=== PATIENT | male | born 1960 | race African-American/Black ===

== ENCOUNTER 2018-07-03 04:50 | Inpatient (IN) ==
[2018-06-22 14:12] LABS: Basophils % 0.8 % (0.0-0.8); Eosinophils # 0.1 10*3/uL (0.0-0.87); Eosinophils % 2.3 % (0.00-10.9); Hematocrit 40.5 VOL% (42.0-52.0); Hemoglobin 13.2 GM/DL (14.0-18.0); Immature Granulocytes % 0.2 %; Immature Granulocytes Absolute 0.01 #; Lymphocytes # 1.7 10*3/uL (1.4-4.0); Lymphocytes % 31.7 % (21.2-54.2); Mean Corpuscular HGB Conc 32.6 GM/DL (32-36); Mean Corpuscular Hemoglobin 29 PG (27-34); Mean Corpuscular Volume 88.4 FL (87-102); Mean Platelet Volume 11.4 FL (9.6-12.0); Monocytes # 0.4 10*3/uL (0.11-0.8); Monocytes % 8.1 % (1.7-12.7); Neutrophils % 56.9 % (38.7-73.9); Platelet Count 232 T/CUMM (130-400); Red Blood Count 4.58 MC/CUMM (3.8-5.5); Red Cell Distribution Width 14.3 % (9.3-17.3); White Blood Count 5.3 T/CUMM (4-12)
[2018-06-22 14:23] LABS: INR 1.1; PT Patient Result 11.4 SECS; Partial Thromboplastin Time 25.9 SECS (0-40)
[2018-06-22 14:37] LABS: Albumin 4.1 G/DL (3.4-5.0); Bilirubin,Total 0.7 MG/DL (0.2-1.0); Calcium 8.8 MG/DL (8.5-10.1); Osmolality,Calculated 282.3 MOS/KG (273-304); Potassium 4.1 MMOL/L (3.5-5.1); Total Protein 8.3 G/DL (6.4-8.3)
[2018-06-22 14:46] LABS: Apearance,Urine CLEAR (Clear); Bilirubin,Urine Negative (Negative); Blood, Urine Negative (Negative); Glucose,Urine (UA) Negative (Negative); Ketones,Urine Negative (Negative); Nitrite,Urine Negative (Negative); Protein,Urine Negative; Urine Color Yellow (Yellow); Urine Specific Gravity 1.018 (1.001-1.035); Urine Urobilinogen < 2.0 EU/DL (0.2-1.0); WBC,Urine 1 /HPF (0-6)
[2018-07-03] MEDS ORDERED: FAMOTIDINE 20 MG TABLET PO ONE (05:30)
[2018-07-03] MEDS ORDERED: GABAPENTIN 400 MG CAPSULE PO ONE (05:30)
[2018-07-03] MEDS ORDERED: ACETAMINOPHEN 500 MG TABLET PO ONE (05:30)
[2018-07-03] MEDS ORDERED: DIAZEPAM 5 MG TABLET PO ONE (05:30)
[2018-07-03] MEDS ORDERED: CLINDAMYCIN INJ 900 MG in PREMIX 1 EACH IV ONE (06:00)
[2018-07-03] MEDS ORDERED: VANCOMYCIN INJ 1,000 MG in SODIUM CHLORIDE 0.9% 250 ML IV ONE ×2 (06:00→21:00)
[2018-07-03] MEDS ORDERED: GABAPENTIN 400 MG CAPSULE ONE (06:52)
[2018-07-03] MEDS ORDERED: ACETAMINOPHEN 500 MG TABLET ONE (06:52)
[2018-07-03] MEDS ORDERED: FAMOTIDINE 20 MG TABLET ONE (06:52)
[2018-07-03] MEDS ORDERED: DIAZEPAM 5 MG TABLET ONE (06:52)
[2018-07-03] MEDS ORDERED: VANCOMYCIN 1,000 MG VIAL ONE (06:52)
[2018-07-03] MEDS ORDERED: CLINDAMYCIN INJ 50 ML IV ONE (06:53)
[2018-07-03] MEDS ORDERED: LACTATED RINGERS 1,000 ML IV SCH ×3 (07:30→14:00)
[2018-07-03] MEDS ORDERED: BACITRACIN OINT 0.9 GM PACK TOP ONE (07:47)
[2018-07-03] MEDS ORDERED: BUPIVACAINE SPINAL 0.75% 2 ML AMP SPINAL ONE (08:14)
[2018-07-03] MEDS ORDERED: TRANEXAMIC ACID 1,000 MG/10 ML VIAL ONE ×2 (09:12→11:53)
[2018-07-03] MEDS ORDERED: HYDROmorphone 2 MG/1 ML VIAL ONE ×2 (11:59→14:26)
[2018-07-03] MEDS ORDERED: ROPIVACAINE 0.5% 30 ML VIAL ONE (12:29)
[2018-07-03] MEDS ORDERED: ONDANSETRON 4 MG/2 ML VIAL IV PRN ×2 (12:35→13:29)
[2018-07-03] MEDS ORDERED: MORPHINE 4 MG/1 ML VIAL IV PRN (12:35)
[2018-07-03] MEDS ORDERED: oxyCODONE IR 5 MG TABLET PO PRN ×2 (12:35)
[2018-07-03] MEDS ORDERED: ZALEPLON 5 MG CAPSULE PO PRN (12:35)
[2018-07-03 12:59] LABS: Apearance,Urine CLEAR (Clear); Bilirubin,Urine Negative (Negative); Blood, Urine Moderate mg/dL (Negative); Glucose,Urine (UA) Negative (Negative); Hyaline Casts,Urine 1 /LPF (0-3); Ketones,Urine Negative (Negative); Mucus,Urine Occasional /LPF (Occasional); Nitrite,Urine Negative (Negative); Protein,Urine Negative; RBC,Urine 40 /HPF (0-4); Squamous Epithelial Cell,Urine Occasional /HPF (0-10); Urine Color Yellow (Yellow); Urine Specific Gravity 1.016 (1.001-1.035); Urine Urobilinogen < 2.0 EU/DL (0.2-1.0); WBC,Urine 3 /HPF (0-6)
[2018-07-03] MEDS ORDERED: PROPOFOL 200 MG/20 ML VIAL IV ONE (13:16)
[2018-07-03] MEDS ORDERED: SEVOFLURANE 1 UNIT/15 MINUTE INH ONE (13:17)
[2018-07-03] MEDS ORDERED: fentaNYL 100 MCG/2 ML VIAL ONE ×2 (13:17)
[2018-07-03] MEDS ORDERED: MIDAZOLAM 2 MG/2 ML VIAL ONE (13:17)
[2018-07-03] MEDS ORDERED: ONDANSETRON 4 MG/2 ML VIAL ONE ×2 (13:18→14:26)
[2018-07-03] MEDS ORDERED: KETOROLAC 30 MG/1 ML VIAL ONE ×2 (13:18→13:40)
[2018-07-03] MEDS ORDERED: PHENYLEPHRINE 1 MG/10 ML SYRINGE IV ONE (13:18)
[2018-07-03] MEDS ORDERED: NEOSTIGMINE 10 MG/10 ML VIAL ONE (13:18)
[2018-07-03] MEDS ORDERED: ROCURONIUM 100 MG/10 ML VIAL IV ONE (13:18)
[2018-07-03] MEDS ORDERED: ACETAMINOPHEN 1,000 MG/100 ML VIAL IV ONE (13:18)
[2018-07-03] MEDS ORDERED: SUCCINYLCHOLINE 200 MG/10 ML VIAL ONE (13:18)
[2018-07-03] MEDS ORDERED: GLYCOPYRROLATE 0.4 MG/2 ML VIAL ONE (13:19)
[2018-07-03] MEDS ORDERED: LACTATED RINGERS 2,000 ML IV ONE (13:19)
[2018-07-03] MEDS: KETOROLAC 30 MG/1 ML VIAL IV SCH ×2 (13:41→18:00)
[2018-07-03 14:24] LABS: Hepatitis B Surface Ag Quant < 0.10 Index
[2018-07-03 14:25] LABS: HIV Antigen/Antibody Result Nonreactive (Nonreactive); Hepatitis B Surface Ag Result Negative (Negative); Hepatitis C Virus Ab Quant 0.02 Index; Hepatitis C Virus Ab Result Negative (Negative)
[2018-07-03] MEDS: HYDROmorphone 2 MG/1 ML VIAL IV PRN ×4 (14:29→14:44)
[2018-07-03] MEDS: GABAPENTIN 300 MG CAPSULE PO SCH ×2 (16:27→21:37)
[2018-07-03] MEDS: ACETAMINOPHEN 500 MG TABLET PO SCH (16:27)
[2018-07-03] MEDS: LACTATED RINGERS 1,000 ML IV SCH ×2 (16:30→21:30)
[2018-07-03] MEDS: MORPHINE 4 MG/1 ML VIAL IV PRN (16:34)
[2018-07-03] MEDS: CLINDAMYCIN INJ 900 MG in PREMIX 1 EACH IV SCH (16:36)
[2018-07-03] MEDS: diphenhydrAMINE CAP 25 MG CAPSULE PO PRN (17:01)
[2018-07-03] MEDS: amLODIPine 10 MG TABLET PO SCH (21:37)
[2018-07-03] MEDS: DOCUSATE SODIUM 100 MG CAPSULE PO SCH (21:37)
[2018-07-04] MEDS: ACETAMINOPHEN 500 MG TABLET PO SCH ×3 (00:48→12:12)
[2018-07-04] MEDS: KETOROLAC 30 MG/1 ML VIAL IV SCH ×2 (00:48→06:23)
[2018-07-04] MEDS: CLINDAMYCIN INJ 900 MG in PREMIX 1 EACH IV SCH ×3 (00:50→17:35)
[2018-07-04] MEDS: diphenhydrAMINE CAP 25 MG CAPSULE PO PRN ×2 (00:56→19:49)
[2018-07-04] MEDS: LACTATED RINGERS 1,000 ML IV SCH (03:55)
[2018-07-04] MEDS: MORPHINE 4 MG/1 ML VIAL IV PRN (03:56)
[2018-07-04] MEDS: FONDAPARINUX 2.5 MG/0.5 ML SYRINGE SUBCUT SCH (06:23)
[2018-07-04 06:29] LABS: Basophils % 0.3 % (0.0-0.8); Eosinophils % 0.6 % (0.00-10.9); Hematocrit 30.9 VOL% (42.0-52.0); Hemoglobin 9.9 GM/DL (14.0-18.0); Immature Granulocytes % 0.4 %; Immature Granulocytes Absolute 0.03 #; Lymphocytes # 0.5 10*3/uL (1.4-4.0); Lymphocytes % 6.8 % (21.2-54.2); Mean Corpuscular Hemoglobin 29 PG (27-34); Mean Corpuscular Volume 90.1 FL (87-102); Mean Platelet Volume 11.2 FL (9.6-12.0); Monocytes # 0.4 10*3/uL (0.11-0.8); Monocytes % 6.2 % (1.7-12.7); Neutrophils # 5.8 10*3/uL (1.4-7.4); Neutrophils % 85.7 % (38.7-73.9); Platelet Count 206 T/CUMM (130-400); Red Blood Count 3.43 MC/CUMM (3.8-5.5); Red Cell Distribution Width 14.6 % (9.3-17.3); White Blood Count 6.8 T/CUMM (4-12)
[2018-07-04 06:57] LABS: Calcium 7.4 MG/DL (8.5-10.1); Osmolality,Calculated 281.4 MOS/KG (273-304); Potassium 4.3 MMOL/L (3.5-5.1)
[2018-07-04] MEDS: FUROSEMIDE 40 MG TABLET PO SCH (09:22)
[2018-07-04] MEDS: ATORVASTATIN 20 MG TABLET PO SCH (09:22)
[2018-07-04] MEDS: SPIRONOLACTONE 25 MG TABLET PO SCH (09:22)
[2018-07-04] MEDS: GABAPENTIN 300 MG CAPSULE PO SCH ×3 (09:22→20:45)
[2018-07-04] MEDS: PANTOPRAZOLE 40 MG TABLET PO SCH (09:22)
[2018-07-04] MEDS: DOCUSATE SODIUM 100 MG CAPSULE PO SCH ×2 (09:22→20:45)
[2018-07-04] MEDS: LISINOPRIL 20 MG TABLET PO SCH (09:24)
[2018-07-04] MEDS ORDERED: ACETAMINOPHEN 325 MG TABLET PO PRN (12:36)
[2018-07-04] MEDS: CELECOXIB 200 MG CAPSULE PO SCH (17:35)
[2018-07-04] MEDS: amLODIPine 10 MG TABLET PO SCH (20:45)
[2018-07-05] MEDS: CLINDAMYCIN INJ 900 MG in PREMIX 1 EACH IV SCH ×2 (00:04→08:23)
[2018-07-05] MEDS: FONDAPARINUX 2.5 MG/0.5 ML SYRINGE SUBCUT SCH (05:57)
[2018-07-05] MEDS: diphenhydrAMINE CAP 25 MG CAPSULE PO PRN ×2 (06:00→22:05)
[2018-07-05 06:53] LABS: Basophils % 0.4 % (0.0-0.8); Eosinophils # 0.3 10*3/uL (0.0-0.87); Eosinophils % 4.9 % (0.00-10.9); Hematocrit 28.7 VOL% (42.0-52.0); Hemoglobin 9.4 GM/DL (14.0-18.0); Immature Granulocytes % 0.2 %; Immature Granulocytes Absolute 0.01 #; Lymphocytes # 1.1 10*3/uL (1.4-4.0); Lymphocytes % 21.5 % (21.2-54.2); Mean Corpuscular HGB Conc 32.8 GM/DL (32-36); Mean Corpuscular Hemoglobin 29 PG (27-34); Mean Corpuscular Volume 88.6 FL (87-102); Mean Platelet Volume 11.2 FL (9.6-12.0); Monocytes # 0.5 10*3/uL (0.11-0.8); Monocytes % 9.2 % (1.7-12.7); Neutrophils # 3.4 10*3/uL (1.4-7.4); Neutrophils % 63.8 % (38.7-73.9); Platelet Count 176 T/CUMM (130-400); Red Blood Count 3.24 MC/CUMM (3.8-5.5); Red Cell Distribution Width 14.6 % (9.3-17.3); White Blood Count 5.3 T/CUMM (4-12)
[2018-07-05] MEDS: SPIRONOLACTONE 25 MG TABLET PO SCH (08:22)
[2018-07-05] MEDS: ATORVASTATIN 20 MG TABLET PO SCH (08:22)
[2018-07-05] MEDS: DOCUSATE SODIUM 100 MG CAPSULE PO SCH ×2 (08:22→20:07)
[2018-07-05] MEDS: PANTOPRAZOLE 40 MG TABLET PO SCH (08:22)
[2018-07-05] MEDS: CELECOXIB 200 MG CAPSULE PO SCH (08:22)
[2018-07-05] MEDS: GABAPENTIN 300 MG CAPSULE PO SCH ×3 (08:22→20:07)
[2018-07-05] MEDS: LISINOPRIL 20 MG TABLET PO SCH (08:22)
[2018-07-05] MEDS: FUROSEMIDE 40 MG TABLET PO SCH (08:22)
[2018-07-05] MEDS: MORPHINE 4 MG/1 ML VIAL IV PRN (16:59)
[2018-07-05] MEDS: MAGNESIUM HYDROXIDE SUSP 30 ML UDCUP PO PRN (18:36)
[2018-07-05] MEDS: amLODIPine 10 MG TABLET PO SCH (20:07)
[2018-07-06 06:11] LABS: Basophils % 0.3 % (0.0-0.8); Eosinophils # 0.4 10*3/uL (0.0-0.87); Eosinophils % 6.4 % (0.00-10.9); Hematocrit 30.6 VOL% (42.0-52.0); Hemoglobin 9.6 GM/DL (14.0-18.0); Immature Granulocytes % 0.2 %; Immature Granulocytes Absolute 0.01 #; Lymphocytes # 1.2 10*3/uL (1.4-4.0); Lymphocytes % 20.3 % (21.2-54.2); Mean Corpuscular HGB Conc 31.4 GM/DL (32-36); Mean Corpuscular Hemoglobin 28 PG (27-34); Mean Corpuscular Volume 90.5 FL (87-102); Mean Platelet Volume 10.7 FL (9.6-12.0); Monocytes # 0.5 10*3/uL (0.11-0.8); Monocytes % 8.6 % (1.7-12.7); Neutrophils # 3.8 10*3/uL (1.4-7.4); Neutrophils % 64.2 % (38.7-73.9); Platelet Count 203 T/CUMM (130-400); Red Blood Count 3.38 MC/CUMM (3.8-5.5); Red Cell Distribution Width 14.6 % (9.3-17.3); White Blood Count 5.9 T/CUMM (4-12)
[2018-07-06] MEDS: FONDAPARINUX 2.5 MG/0.5 ML SYRINGE SUBCUT SCH (06:22)
[2018-07-06] MEDS: MAGNESIUM HYDROXIDE SUSP 30 ML UDCUP PO PRN (06:26)
[2018-07-06] MEDS: SPIRONOLACTONE 25 MG TABLET PO SCH (09:41)
[2018-07-06] MEDS: DOCUSATE SODIUM 100 MG CAPSULE PO SCH ×2 (09:41→20:33)
[2018-07-06] MEDS: PANTOPRAZOLE 40 MG TABLET PO SCH (09:42)
[2018-07-06] MEDS: GABAPENTIN 300 MG CAPSULE PO SCH ×3 (09:42→20:33)
[2018-07-06] MEDS: ATORVASTATIN 20 MG TABLET PO SCH (09:42)
[2018-07-06] MEDS: CELECOXIB 200 MG CAPSULE PO SCH (09:42)
[2018-07-06] MEDS: FUROSEMIDE 40 MG TABLET PO SCH (09:42)
[2018-07-06] MEDS: LISINOPRIL 20 MG TABLET PO SCH (09:43)
[2018-07-06] MEDS: amLODIPine 10 MG TABLET PO SCH (20:33)
[2018-07-06] MEDS: diphenhydrAMINE CAP 25 MG CAPSULE PO PRN (22:22)
[2018-07-07] MEDS: diphenhydrAMINE CAP 25 MG CAPSULE PO PRN ×2 (04:02→09:41)
[2018-07-07] MEDS: FONDAPARINUX 2.5 MG/0.5 ML SYRINGE SUBCUT SCH (05:37)
[2018-07-07] MEDS: SPIRONOLACTONE 25 MG TABLET PO SCH (08:19)
[2018-07-07] MEDS: FUROSEMIDE 40 MG TABLET PO SCH (08:19)
[2018-07-07] MEDS: GABAPENTIN 300 MG CAPSULE PO SCH (08:19)
[2018-07-07] MEDS: LISINOPRIL 20 MG TABLET PO SCH (08:19)
[2018-07-07] MEDS: DOCUSATE SODIUM 100 MG CAPSULE PO SCH (08:19)
[2018-07-07] MEDS: CELECOXIB 200 MG CAPSULE PO SCH (08:19)
[2018-07-07] MEDS: PANTOPRAZOLE 40 MG TABLET PO SCH (08:19)
[2018-07-07] MEDS: ATORVASTATIN 20 MG TABLET PO SCH (08:19)
[2018-07-07 11:24] VITALS: BP 138/74
== END 2018-07-07 14:16 | disposition swing bed (61) | DRG 468 ==
LOC: N.OR 04:50 → N.SDSINP 04:57 → N.3E 10:04
PROVIDERS: ADMIT Orthopaedic Surgery; ATTEND Orthopaedic Surgery

== ENCOUNTER 2018-07-11 17:44 | Inpatient (IN) ==
[2018-07-11] MEDS ORDERED: MORPHINE 4 MG/1 ML VIAL IV PRN (18:59)
[2018-07-11] MEDS ORDERED: ONDANSETRON 4 MG/2 ML VIAL IV PRN (18:59)
[2018-07-11] MEDS ORDERED: DEXTROSE 50% 25 GM/50 ML VIAL IV PRN (19:02)
[2018-07-11] MEDS ORDERED: BISACODYL 5 MG TABLET PO PRN (19:02)
[2018-07-11] MEDS ORDERED: ACETAMINOPHEN 325 MG TABLET PO PRN (19:02)
[2018-07-11] MEDS ORDERED: ALUMINUM/MAGNES/SIMETH MAX STR 30 ML UDCUP PO PRN (19:02)
[2018-07-11] MEDS ORDERED: COLCHICINE 0.6 MG TABLET PO SCH (21:00)
[2018-07-11 21:12] LABS: Basophils # 0.1 10*3/uL (0.0-0.2); Basophils % 0.6 % (0.0-0.8); Eosinophils # 0.2 10*3/uL (0.0-0.87); Eosinophils % 2.4 % (0.00-10.9); Hemoglobin 10.7 GM/DL (14.0-18.0); Immature Granulocytes % 0.4 %; Immature Granulocytes Absolute 0.03 #; Lymphocytes # 1.5 10*3/uL (1.4-4.0); Mean Corpuscular HGB Conc 32.4 GM/DL (32-36); Mean Corpuscular Hemoglobin 29 PG (27-34); Mean Corpuscular Volume 89.7 FL (87-102); Mean Platelet Volume 10.9 FL (9.6-12.0); Monocytes # 0.5 10*3/uL (0.11-0.8); Monocytes % 6.1 % (1.7-12.7); Neutrophils % 72.5 % (38.7-73.9); Red Blood Count 3.68 MC/CUMM (3.8-5.5); Red Cell Distribution Width 14.4 % (9.3-17.3)
[2018-07-11 21:21] LABS: Platelet Count 322 T/CUMM (130-400); White Blood Count 8.2 T/CUMM (4-12)
[2018-07-11 21:38] LABS: Albumin 3.4 G/DL (3.4-5.0); Bilirubin,Total 0.4 MG/DL (0.2-1.0); Calcium 8.5 MG/DL (8.5-10.1); Osmolality,Calculated 276.8 MOS/KG (273-304); Potassium 4.3 MMOL/L (3.5-5.1); Total Protein 8.1 G/DL (6.4-8.3)
[2018-07-11] MEDS: amLODIPine 10 MG TABLET PO SCH (21:52)
[2018-07-11] MEDS: GABAPENTIN 300 MG CAPSULE PO SCH (21:52)
[2018-07-11] MEDS: diphenhydrAMINE CAP 25 MG CAPSULE PO PRN (23:13)
[2018-07-12 05:49] LABS: Basophils % 0.5 % (0.0-0.8); Eosinophils # 0.3 10*3/uL (0.0-0.87); Eosinophils % 4.8 % (0.00-10.9); Hemoglobin 9.9 GM/DL (14.0-18.0); Immature Granulocytes % 0.3 %; Immature Granulocytes Absolute 0.02 #; Lymphocytes # 1.7 10*3/uL (1.4-4.0); Mean Corpuscular HGB Conc 31.9 GM/DL (32-36); Mean Corpuscular Hemoglobin 29 PG (27-34); Mean Corpuscular Volume 89.6 FL (87-102); Mean Platelet Volume 10.2 FL (9.6-12.0); Monocytes # 0.6 10*3/uL (0.11-0.8); Monocytes % 9.5 % (1.7-12.7); Neutrophils % 59.9 % (38.7-73.9); Platelet Count 346 T/CUMM (130-400); Red Blood Count 3.46 MC/CUMM (3.8-5.5); Red Cell Distribution Width 14.6 % (9.3-17.3); White Blood Count 6.6 T/CUMM (4-12)
[2018-07-12 06:23] LABS: Albumin 2.9 G/DL (3.4-5.0); Bilirubin,Total 0.7 MG/DL (0.2-1.0); Calcium 8.3 MG/DL (8.5-10.1); Osmolality,Calculated 277.7 MOS/KG (273-304); Potassium 3.9 MMOL/L (3.5-5.1)
[2018-07-12] MEDS ORDERED: CLINDAMYCIN INJ 900 MG in PREMIX 1 EACH IV ONE ×2 (07:48→17:00)
[2018-07-12] MEDS ORDERED: VANCOMYCIN INJ 1,000 MG in SODIUM CHLORIDE 0.9% 250 ML IV ONE ×2 (07:48→17:00)
[2018-07-12] MEDS ORDERED: ONDANSETRON 4 MG TABLET PO PRN (08:03)
[2018-07-12] MEDS ORDERED: ZALEPLON 5 MG CAPSULE PO PRN (08:03)
[2018-07-12] MEDS ORDERED: traMADol 50 MG TABLET PO PRN (08:03)
[2018-07-12] MEDS ORDERED: guaiFENesin 200 MG/10 ML UDCUP PO PRN (08:03)
[2018-07-12] MEDS ORDERED: PANTOPRAZOLE 40 MG TABLET PO SCH (09:00)
[2018-07-12] MEDS: LACTATED RINGERS 1,000 ML IV SCH ×2 (09:35→22:31)
[2018-07-12] MEDS: PANTOPRAZOLE 40 MG TABLET PO SCH (11:11)
[2018-07-12] MEDS: SPIRONOLACTONE 25 MG TABLET PO SCH (12:11)
[2018-07-12] MEDS: CELECOXIB 200 MG CAPSULE PO SCH (12:11)
[2018-07-12] MEDS: FUROSEMIDE 40 MG TABLET PO SCH (12:11)
[2018-07-12] MEDS: GABAPENTIN 300 MG CAPSULE PO SCH ×2 (12:11→15:20)
[2018-07-12] MEDS: ATORVASTATIN 20 MG TABLET PO SCH (12:11)
[2018-07-12] MEDS ORDERED: MAGNESIUM HYDROXIDE SUSP 30 ML UDCUP PO PRN (17:58)
[2018-07-12] MEDS ORDERED: NALOXONE 0.4 MG/ML VIAL IV PRN (18:01)
[2018-07-12] MEDS ORDERED: TRANEXAMIC ACID 1,000 MG/10 ML VIAL ONE (18:15)
[2018-07-12] MEDS ORDERED: BACITRACIN OINT 0.9 GM PACK TOP ONE ×2 (18:15→20:00)
[2018-07-12] MEDS ORDERED: HYDROmorphone 2 MG/1 ML VIAL ONE (20:54)
[2018-07-12] MEDS ORDERED: ONDANSETRON 4 MG/2 ML VIAL ONE ×2 (20:54→22:29)
[2018-07-12] MEDS ORDERED: ONDANSETRON 4 MG/2 ML VIAL IV PRN (21:02)
[2018-07-12] MEDS: HYDROmorphone 2 MG/1 ML VIAL IV PRN ×4 (21:10→21:31)
[2018-07-12] MEDS ORDERED: hydrALAZINE 20 MG/1 ML VIAL ONE (21:20)
[2018-07-12] MEDS ORDERED: hydrALAZINE 20 MG/1 ML VIAL IV ONE (21:30)
[2018-07-12] MEDS ORDERED: LACTATED RINGERS 1,000 ML IV SCH (21:30)
[2018-07-12] MEDS ORDERED: PROPOFOL 200 MG/20 ML VIAL IV ONE (22:27)
[2018-07-12] MEDS ORDERED: LABETALOL 20 MG/4 ML SYRINGE IV ONE (22:28)
[2018-07-12] MEDS ORDERED: MIDAZOLAM 2 MG/2 ML VIAL ONE (22:28)
[2018-07-12] MEDS ORDERED: SEVOFLURANE 1 UNIT/15 MINUTE INH ONE (22:28)
[2018-07-12] MEDS ORDERED: fentaNYL 100 MCG/2 ML VIAL ONE (22:28)
[2018-07-12] MEDS ORDERED: SODIUM CHLORIDE 0.9% 100 ML IV ONE (22:29)
[2018-07-12] MEDS ORDERED: ACETAMINOPHEN 1,000 MG/100 ML VIAL IV ONE (22:29)
[2018-07-12] MEDS ORDERED: LACTATED RINGERS 1,000 ML IV ONE (22:29)
[2018-07-12] MEDS: CLINDAMYCIN INJ 900 MG in PREMIX 1 EACH IV SCH (22:31)
[2018-07-12] MEDS: MORPHINE PCA 30 MG/30 ML SYRINGE IV SCH (22:31)
[2018-07-12] MEDS: ACETAMINOPHEN 500 MG TABLET PO SCH (23:02)
[2018-07-12] MEDS: diphenhydrAMINE CAP 25 MG CAPSULE PO PRN (23:02)
[2018-07-12] MEDS: amLODIPine 10 MG TABLET PO SCH (23:02)
[2018-07-12] MEDS: DOCUSATE SODIUM 100 MG CAPSULE PO SCH (23:27)
[2018-07-13] MEDS: GABAPENTIN 300 MG CAPSULE PO SCH ×4 (02:34→20:30)
[2018-07-13] MEDS: LACTATED RINGERS 1,000 ML IV SCH ×2 (02:35→18:57)
[2018-07-13 05:49] LABS: Basophils # 0.1 10*3/uL (0.0-0.2); Basophils % 0.5 % (0.0-0.8); Eosinophils # 0.1 10*3/uL (0.0-0.87); Eosinophils % 0.6 % (0.00-10.9); Hematocrit 27.3 VOL% (42.0-52.0); Hemoglobin 8.7 GM/DL (14.0-18.0); Immature Granulocytes % 0.4 %; Immature Granulocytes Absolute 0.04 #; Lymphocytes # 1.2 10*3/uL (1.4-4.0); Lymphocytes % 12.4 % (21.2-54.2); Mean Corpuscular HGB Conc 31.9 GM/DL (32-36); Mean Corpuscular Hemoglobin 29 PG (27-34); Mean Corpuscular Volume 90.1 FL (87-102); Mean Platelet Volume 10.1 FL (9.6-12.0); Monocytes # 0.8 10*3/uL (0.11-0.8); Monocytes % 8.2 % (1.7-12.7); Neutrophils # 7.3 10*3/uL (1.4-7.4); Neutrophils % 77.9 % (38.7-73.9); Platelet Count 376 T/CUMM (130-400); Red Blood Count 3.03 MC/CUMM (3.8-5.5); Red Cell Distribution Width 14.6 % (9.3-17.3); White Blood Count 9.4 T/CUMM (4-12)
[2018-07-13 06:12] LABS: Calcium 8.1 MG/DL (8.5-10.1); Osmolality,Calculated 277.7 MOS/KG (273-304); Potassium 4.3 MMOL/L (3.5-5.1)
[2018-07-13] MEDS: CLINDAMYCIN INJ 900 MG in PREMIX 1 EACH IV SCH (06:19)
[2018-07-13] MEDS: ACETAMINOPHEN 500 MG TABLET PO SCH ×3 (06:19→19:11)
[2018-07-13] MEDS: PANTOPRAZOLE 40 MG TABLET PO SCH (08:22)
[2018-07-13] MEDS: CELECOXIB 200 MG CAPSULE PO SCH (08:22)
[2018-07-13] MEDS: ATORVASTATIN 20 MG TABLET PO SCH (08:23)
[2018-07-13] MEDS: FUROSEMIDE 40 MG TABLET PO SCH (08:23)
[2018-07-13] MEDS: SPIRONOLACTONE 25 MG TABLET PO SCH (08:23)
[2018-07-13] MEDS: DOCUSATE SODIUM 100 MG CAPSULE PO SCH ×2 (10:40→20:30)
[2018-07-13] MEDS: FONDAPARINUX 2.5 MG/0.5 ML SYRINGE SUBCUT SCH (12:07)
[2018-07-13] MEDS ORDERED: ACETAMINOPHEN 500 MG TABLET ONE (19:09)
[2018-07-13] MEDS: amLODIPine 10 MG TABLET PO SCH (20:31)
[2018-07-13] MEDS: MORPHINE PCA 30 MG/30 ML SYRINGE IV SCH (23:30)
[2018-07-14 05:28] LABS: Basophils % 0.5 % (0.0-0.8); Eosinophils # 0.2 10*3/uL (0.0-0.87); Hematocrit 26.8 VOL% (42.0-52.0); Hemoglobin 8.4 GM/DL (14.0-18.0); Immature Granulocytes % 0.5 %; Immature Granulocytes Absolute 0.04 #; Lymphocytes # 1.3 10*3/uL (1.4-4.0); Lymphocytes % 16.5 % (21.2-54.2); Mean Corpuscular HGB Conc 31.3 GM/DL (32-36); Mean Corpuscular Hemoglobin 28 PG (27-34); Mean Corpuscular Volume 90.2 FL (87-102); Mean Platelet Volume 10.2 FL (9.6-12.0); Monocytes % 11.9 % (1.7-12.7); Neutrophils # 5.6 10*3/uL (1.4-7.4); Neutrophils % 68.6 % (38.7-73.9); Platelet Count 346 T/CUMM (130-400); Red Blood Count 2.97 MC/CUMM (3.8-5.5); Red Cell Distribution Width 14.6 % (9.3-17.3); White Blood Count 8.1 T/CUMM (4-12)
[2018-07-14] MEDS: PANTOPRAZOLE 40 MG TABLET PO SCH (10:11)
[2018-07-14] MEDS: SPIRONOLACTONE 25 MG TABLET PO SCH (10:11)
[2018-07-14] MEDS: GABAPENTIN 300 MG CAPSULE PO SCH ×3 (10:11→20:08)
[2018-07-14] MEDS: CELECOXIB 200 MG CAPSULE PO SCH (10:11)
[2018-07-14] MEDS: ATORVASTATIN 20 MG TABLET PO SCH (10:11)
[2018-07-14] MEDS: DOCUSATE SODIUM 100 MG CAPSULE PO SCH ×2 (10:11→20:08)
[2018-07-14] MEDS: FUROSEMIDE 40 MG TABLET PO SCH (10:11)
[2018-07-14] MEDS: FONDAPARINUX 2.5 MG/0.5 ML SYRINGE SUBCUT SCH (14:10)
[2018-07-14] MEDS: amLODIPine 10 MG TABLET PO SCH (20:08)
[2018-07-14] MEDS: LACTATED RINGERS 1,000 ML IV SCH (22:55)
[2018-07-15 05:20] LABS: Basophils % 0.5 % (0.0-0.8); Eosinophils # 0.3 10*3/uL (0.0-0.87); Hematocrit 22.8 VOL% (42.0-52.0); Hemoglobin 7.5 GM/DL (14.0-18.0); Immature Granulocytes % 0.7 %; Immature Granulocytes Absolute 0.06 #; Lymphocytes # 1.5 10*3/uL (1.4-4.0); Lymphocytes % 17.1 % (21.2-54.2); Mean Corpuscular HGB Conc 32.9 GM/DL (32-36); Mean Corpuscular Hemoglobin 29 PG (27-34); Mean Corpuscular Volume 87.7 FL (87-102); Mean Platelet Volume 10.4 FL (9.6-12.0); Monocytes # 0.8 10*3/uL (0.11-0.8); Monocytes % 9.7 % (1.7-12.7); Neutrophils # 5.8 10*3/uL (1.4-7.4); Platelet Count 359 T/CUMM (130-400); Red Cell Distribution Width 14.6 % (9.3-17.3); White Blood Count 8.5 T/CUMM (4-12)
[2018-07-15] MEDS: DOCUSATE SODIUM 100 MG CAPSULE PO SCH ×2 (09:31→21:04)
[2018-07-15] MEDS: ATORVASTATIN 20 MG TABLET PO SCH (09:31)
[2018-07-15] MEDS: PANTOPRAZOLE 40 MG TABLET PO SCH (09:31)
[2018-07-15] MEDS: CELECOXIB 200 MG CAPSULE PO SCH (09:31)
[2018-07-15] MEDS: GABAPENTIN 300 MG CAPSULE PO SCH ×3 (09:31→21:04)
[2018-07-15] MEDS: SPIRONOLACTONE 25 MG TABLET PO SCH (09:31)
[2018-07-15] MEDS: FUROSEMIDE 40 MG TABLET PO SCH (09:31)
[2018-07-15] MEDS: LACTATED RINGERS 1,000 ML IV SCH (09:35)
[2018-07-15] MEDS ORDERED: SODIUM CHLORIDE 0.9% 1,000 ML IV PRN (11:53)
[2018-07-15] MEDS: FONDAPARINUX 2.5 MG/0.5 ML SYRINGE SUBCUT SCH (12:29)
[2018-07-15] MEDS: amLODIPine 10 MG TABLET PO SCH (21:04)
[2018-07-16 05:58] LABS: Hematocrit 28.9 VOL% (42.0-52.0)
[2018-07-16 06:00] LABS: Hemoglobin 9.7 GM/DL (14.0-18.0)
[2018-07-16] MEDS: LACTATED RINGERS 1,000 ML IV SCH (08:00)
[2018-07-16] MEDS: PANTOPRAZOLE 40 MG TABLET PO SCH (10:50)
[2018-07-16] MEDS: CELECOXIB 200 MG CAPSULE PO SCH (10:50)
[2018-07-16] MEDS: FUROSEMIDE 40 MG TABLET PO SCH (10:50)
[2018-07-16] MEDS: DOCUSATE SODIUM 100 MG CAPSULE PO SCH ×2 (10:50→20:01)
[2018-07-16] MEDS: ATORVASTATIN 20 MG TABLET PO SCH (10:50)
[2018-07-16] MEDS: SPIRONOLACTONE 25 MG TABLET PO SCH (10:50)
[2018-07-16] MEDS: GABAPENTIN 300 MG CAPSULE PO SCH ×3 (10:50→20:01)
[2018-07-16] MEDS: FONDAPARINUX 2.5 MG/0.5 ML SYRINGE SUBCUT SCH (12:27)
[2018-07-16] MEDS: amLODIPine 10 MG TABLET PO SCH (20:01)
[2018-07-17] MEDS: LACTATED RINGERS 1,000 ML IV SCH (08:41)
[2018-07-17] MEDS: SPIRONOLACTONE 25 MG TABLET PO SCH (08:43)
[2018-07-17] MEDS: DOCUSATE SODIUM 100 MG CAPSULE PO SCH ×2 (08:43→21:02)
[2018-07-17] MEDS: PANTOPRAZOLE 40 MG TABLET PO SCH (08:43)
[2018-07-17] MEDS: CELECOXIB 200 MG CAPSULE PO SCH (08:43)
[2018-07-17] MEDS: GABAPENTIN 300 MG CAPSULE PO SCH ×3 (08:43→21:02)
[2018-07-17] MEDS: ATORVASTATIN 20 MG TABLET PO SCH (08:43)
[2018-07-17] MEDS ORDERED: FUROSEMIDE 40 MG/4 ML VIAL IV ONE (09:00)
[2018-07-17] MEDS: FONDAPARINUX 2.5 MG/0.5 ML SYRINGE SUBCUT SCH (11:19)
[2018-07-17] MEDS: amLODIPine 10 MG TABLET PO SCH (21:03)
[2018-07-18 06:39] LABS: Basophils % 0.6 % (0.0-0.8); Eosinophils # 0.4 10*3/uL (0.0-0.87); Eosinophils % 5.3 % (0.00-10.9); Hematocrit 27.9 VOL% (42.0-52.0); Hemoglobin 9.4 GM/DL (14.0-18.0); Immature Granulocytes % 0.3 %; Immature Granulocytes Absolute 0.02 #; Lymphocytes # 1.6 10*3/uL (1.4-4.0); Lymphocytes % 22.9 % (21.2-54.2); Mean Corpuscular HGB Conc 33.7 GM/DL (32-36); Mean Corpuscular Hemoglobin 30 PG (27-34); Mean Corpuscular Volume 87.7 FL (87-102); Mean Platelet Volume 9.8 FL (9.6-12.0); Monocytes # 0.5 10*3/uL (0.11-0.8); Monocytes % 6.9 % (1.7-12.7); Neutrophils # 4.4 10*3/uL (1.4-7.4); Platelet Count 444 T/CUMM (130-400); Red Blood Count 3.18 MC/CUMM (3.8-5.5); Red Cell Distribution Width 14.5 % (9.3-17.3); White Blood Count 6.8 T/CUMM (4-12)
[2018-07-18 07:12] LABS: Albumin 2.6 G/DL (3.4-5.0); Bilirubin,Total 0.8 MG/DL (0.2-1.0); Calcium 8.5 MG/DL (8.5-10.1); Osmolality,Calculated 279.4 MOS/KG (273-304); Potassium 3.9 MMOL/L (3.5-5.1); Total Protein 6.7 G/DL (6.4-8.3)
[2018-07-18] MEDS: ATORVASTATIN 20 MG TABLET PO SCH (09:40)
[2018-07-18] MEDS: CELECOXIB 200 MG CAPSULE PO SCH (09:40)
[2018-07-18] MEDS: SPIRONOLACTONE 25 MG TABLET PO SCH (09:40)
[2018-07-18] MEDS: DOCUSATE SODIUM 100 MG CAPSULE PO SCH ×2 (09:40→21:53)
[2018-07-18] MEDS: PANTOPRAZOLE 40 MG TABLET PO SCH (09:40)
[2018-07-18] MEDS: FUROSEMIDE 40 MG TABLET PO SCH (09:40)
[2018-07-18] MEDS: GABAPENTIN 300 MG CAPSULE PO SCH ×3 (09:40→21:53)
[2018-07-18] MEDS: FONDAPARINUX 2.5 MG/0.5 ML SYRINGE SUBCUT SCH (12:16)
[2018-07-18] MEDS: amLODIPine 10 MG TABLET PO SCH (21:53)
[2018-07-19 05:43] LABS: Basophils # 0.1 10*3/uL (0.0-0.2); Basophils % 0.9 % (0.0-0.8); Eosinophils # 0.3 10*3/uL (0.0-0.87); Hematocrit 28.6 VOL% (42.0-52.0); Hemoglobin 9.3 GM/DL (14.0-18.0); Immature Granulocytes % 0.5 %; Immature Granulocytes Absolute 0.03 #; Lymphocytes # 1.6 10*3/uL (1.4-4.0); Lymphocytes % 24.2 % (21.2-54.2); Mean Corpuscular HGB Conc 32.5 GM/DL (32-36); Mean Corpuscular Hemoglobin 29 PG (27-34); Mean Corpuscular Volume 89.7 FL (87-102); Mean Platelet Volume 9.7 FL (9.6-12.0); Monocytes # 0.5 10*3/uL (0.11-0.8); Monocytes % 8.3 % (1.7-12.7); Neutrophils # 3.9 10*3/uL (1.4-7.4); Neutrophils % 61.1 % (38.7-73.9); Platelet Count 451 T/CUMM (130-400); Red Blood Count 3.19 MC/CUMM (3.8-5.5); Red Cell Distribution Width 14.4 % (9.3-17.3); White Blood Count 6.4 T/CUMM (4-12)
[2018-07-19 05:53] LABS: Albumin 2.6 G/DL (3.4-5.0); Bilirubin,Total 0.6 MG/DL (0.2-1.0); Calcium 8.5 MG/DL (8.5-10.1); Osmolality,Calculated 277.5 MOS/KG (273-304); Potassium 3.9 MMOL/L (3.5-5.1); Total Protein 6.7 G/DL (6.4-8.3)
[2018-07-19] MEDS: SPIRONOLACTONE 25 MG TABLET PO SCH (09:57)
[2018-07-19] MEDS: FUROSEMIDE 40 MG TABLET PO SCH (09:57)
[2018-07-19] MEDS: GABAPENTIN 300 MG CAPSULE PO SCH ×2 (09:57→15:43)
[2018-07-19] MEDS: CELECOXIB 200 MG CAPSULE PO SCH (09:57)
[2018-07-19] MEDS: PANTOPRAZOLE 40 MG TABLET PO SCH (09:57)
[2018-07-19] MEDS: DOCUSATE SODIUM 100 MG CAPSULE PO SCH (09:57)
[2018-07-19] MEDS: ATORVASTATIN 20 MG TABLET PO SCH (09:58)
[2018-07-19 12:50] VITALS: BP 112/68
[2018-07-19] MEDS: FONDAPARINUX 2.5 MG/0.5 ML SYRINGE SUBCUT SCH (15:43)
== END 2018-07-19 14:20 | disposition swing bed (61) | DRG 481 ==
LOC: N.ED 17:44 → N.EDINP 18:26 → N.3E 18:59
PROVIDERS: ADMIT Orthopaedic Surgery; ATTEND Orthopaedic Surgery